=== PATIENT | male | born 1945 | race Caucasian/White ===

== ENCOUNTER → 2018-06-22 | Outpatient (CLI) | payer OTHER ==
[~2018-06-22] MED LIST: AMOX1TAB64 PO; ASPI-650 PO; CELE50CA PO; ESOM20CA PO; GADOBUTROL 10 MMOL/10 ML PFS ONE; LOSA25TA6 PO; PRED20TA PO
== END | disposition home or self-care (01) ==
LOC: CFH 08:21
PROVIDERS: ATTEND Nurse Practitioner Primary Care
DX: R25.1 Tremor, unspecified (principal); R51 Headache; R42 Dizziness and giddiness; Z87.891 Personal history of nicotine dependence
CPT/HCPCS: 70553; A9585

== ENCOUNTER 2019-08-14 12:48 | Outpatient (CLI) | payer MEDICARE ==
[~2019-08-14 12:48] MED LIST changes: -GADOBUTROL 10 MMOL/10 ML PFS ONE; +LOSA25TA25 PO; -LOSA25TA6 PO
[2019-08-14] MEDS ORDERED: vitamin D PO (13:26)
[2019-08-14] MEDS ORDERED: [UNRECOGNIZED DRUG - OTHER] PO (13:26)
[2019-08-14] MEDS ORDERED: vitamin B12 (13:26)
[2019-08-14] MEDS ORDERED: glucosamin (13:26)
[2019-08-14] MEDS ORDERED: LOSA1TAB22 PO (13:26)
[2019-08-14] MEDS ORDERED: CELE200C PO (13:26)
[2019-08-14] MEDS ORDERED: [UNRECOGNIZED DRUG - CODE] PO (13:26)
[2019-08-14] MEDS ORDERED: HYDR-3237 PO (13:26)
[2019-08-14 14:28] LABS: BASOPHILS # (AUTO) 0.02 x10^3/uL (0-0.1); BASOPHILS % (AUTO) 0 % (0-1); EOSINOPHILS # (AUTO) 0.24 x10^3/uL (0-0.4); EOSINOPHILS % (AUTO) 3 % (1-7); LYMPHOCYTES # (AUTO) 1.61 x10^3/uL (1-3.4); LYMPHOCYTES % (AUTO) 21 % (22-44); MD NO; MEAN CORPUSCULAR HEMOGLOBIN 32.1 pg (27.5-34.5); MEAN CORPUSCULAR HGB CONC 33.7 g/dL (33.2-36.2); MEAN CORPUSCULAR VOLUME 95.4 fL (81-97); MEAN PLATELET VOLUME 9.4 fL (7.4-10.4); MONOCYTES # (AUTO) 0.66 x10^3/uL (0.2-0.8); MONOCYTES % (AUTO) 9 % (2-9); NEUTROPHILS # (AUTO) 5.11 x10^3/uL (1.8-6.8); NEUTROPHILS % (AUTO) 67 % (42-75); PLATELET COUNT 383 x10^3/uL (130-400); RED BLOOD COUNT 4.76 x10^6/uL (4.38-5.82); RED CELL DISTRIBUTION WIDTH 13.7 % (9.4-14.8)
[2019-08-14 14:37] LABS: ALANINE AMINOTRANSFERASE 22 U/L (12-78); ALBUMIN 3.3 g/dL (3.4-5.0); ANION GAP 9 mmol/L (5-15); CALCIUM 8.1 mg/dL (8.5-10.1); CHLORIDE 102 mmol/L (98-107); CREATININE 0.92 mg/dL (0.7-1.3)
[2019-08-14 14:39] LABS: ALKALINE PHOSPHATASE 94 U/L (45-117); BILIRUBIN,TOTAL 0.7 mg/dL (0.2-1.0); TOTAL PROTEIN 7.1 g/dL (6.4-8.2)
[2019-08-14 14:40] LABS: INTERNATIONAL NORMALIZED RATIO 1.05 (0.93-1.1)
[2019-08-17] MEDS ORDERED: METO-99 PO (10:41)
[2019-08-17] MEDS ORDERED: RIVA20TA PO (10:41)
== END 2019-08-14 23:59 | disposition home or self-care (01) ==
LOC: STAR 12:48
PROVIDERS: ATTEND Neurological Surgery
DX: Z01.818 Encounter for other preprocedural examination (principal); M48.061 Spinal stenosis, lumbar region without neurogenic claudication; M48.02 Spinal stenosis, cervical region
CPT/HCPCS: 36415; 80053; 85025; 85610; 85730; 93005

== ENCOUNTER 2019-08-23 13:03 | Day surgery (SDC) | payer MEDICARE ==
[~2019-08-23] VITALS: Ht 180.3 cm; Wt 95.0 kg
[2019-08-23 09:27] VITALS: BP 131/96
[~2019-08-23 13:03] MED LIST changes: +ALBUTEROL SULFATE 2.5 MG/3 ML NPPB PRN; +BACITRACIN 50,000 UNIT ONE; +BUPIVACAINE 0.25% ONE; +BUPIVACAINE LIPOSOME/PF 10ML INFIL ONE; +BUPIVACAINE/PF 0.5% ONE; +CEFAZOLIN 1,000 MG ONE; +CELE200C PO; +CYAN50003 PO; +DEXAMETHASONE 4 MG/ML, 1ML ONE; +FENTANYL PF 100 MCG/2ML IV PRN; +FENTANYL PF 100 MCG/2ML ONE; +FENTANYL PF 250 MCG/5ML ONE; +GLUC-128 PO; +HYDR-3237 PO; +HYDROmorphone 1 MG/ML, 1ML VIAL IV PRN; +KETOROLAC 30 MG/1 ML IV PRN; +LABETALOL 5 MG/ML SYR. (IV ONLY) IV PRN; +LACTATED RINGERS 1,000 ML IV SCH; +LOSA1TAB22 PO; +MEPERIDINE/PF 25MG/0.5ML IVPush PRN; +METO-99 PO; +METOCLOPRAMIDE 5 MG/ML, 2ML IV PRN; +MIDAZOLAM 1 MG/ML, 2ML ONE; +OMEG-14 PO; +ONDANSETRON 2MG/ML, 2ML IVPush PRN; +ONDANSETRON 2MG/ML, 2ML ONE; +OXYcodone 5 MG/5 ML ORAL.SOL UDC PO PRN; +PROMETHAZINE 25 MG/ML, 1ML IV PRN; +PROPOFOL 10 MG/ML, 20ML ONE; +RIVA20TA PO; +SUCCINYLCHOLINE 20 MG/ML, 10ML ONE; +THROMBIN 5,000 UNIT VIAL TP ONE; +VANCOMYCIN 1,000 MG ONE; +[UNRECOGNIZED DRUG - CODE] PO; +[UNRECOGNIZED DRUG - OTHER] PO; +glucosamin; +hydrALAzine 20 MG/ML, 1ML IV PRN; +vitamin B12; +vitamin D PO
[2019-08-23] MEDS ORDERED: ONDANSETRON 2MG/ML, 2ML IVPush PRN (13:30)
[2019-08-23] MEDS ORDERED: morphine SULFATE 10 MG/ML, 1ML IVPush PRN (13:30)
[2019-08-23] MEDS ORDERED: METHOCARBAMOL 750 MG TABLET PO PRN (13:30)
[2019-08-23] MEDS ORDERED: SENNA/DOCUSATE TABLET PO PRN (13:30)
[2019-08-23] MEDS ORDERED: HYDROcodone/APAP 5/325 TABLET PO PRN (13:30)
[2019-08-23] MEDS ORDERED: DIPHENHYDRAMINE 50 MG/ML, 1ML IVPush PRN (13:30)
[2019-08-23] MEDS ORDERED: MAGNESIUM HYDROXIDE 8%, 30ML UDC PO PRN (13:30)
[2019-08-23] MEDS ORDERED: PROMETHAZINE 25 MG/ML, 1ML IM PRN (13:30)
[2019-08-23] MEDS ORDERED: PHARMACY MAY ADJ FOR RENAL FX MC PRN (13:30)
[2019-08-23] MEDS ORDERED: LABETALOL 5 MG/ML SYR. (IV ONLY) IVPush PRN (13:30)
[2019-08-23] MEDS ORDERED: HYDROcodone/APAP 10/325 MG TABLET PO PRN (13:30)
[2019-08-23 14:24] VITALS: BP 110/67
[2019-08-23] MEDS: D5%-0.9% NACL+KCL 20MEQ 1,000 ML IV SCH (15:07)
[2019-08-23] MEDS: METOPROLOL TARTRATE 100 MG TAB PO SCH (20:23)
[2019-08-23] MEDS: CEFAZOLIN PMX 1GM/50ML 50 ML IVPB SCH (20:24)
[2019-08-23] MEDS: OXYcodone/APAP 5/325MG TABLET PO PRN ×2 (20:24→21:01)
[2019-08-23] MEDS: SODIUM CHLORIDE FLUSH 10ML SYR IVF SCH (20:24)
[2019-08-23 21:04] VITALS: BP 120/84
[2019-08-24 00:56] VITALS: BP 116/78
[2019-08-24] MEDS: OXYcodone/APAP 5/325MG TABLET PO PRN ×2 (01:05→05:04)
[2019-08-24] MEDS: CEFAZOLIN PMX 1GM/50ML 50 ML IVPB SCH (04:16)
[2019-08-24 04:19] VITALS: BP 120/81
[2019-08-24 06:42] VITALS: BP 131/89
[2019-08-24] MEDS: SODIUM CHLORIDE FLUSH 10ML SYR IVF SCH (08:49)
[2019-08-24] MEDS: METOPROLOL TARTRATE 100 MG TAB PO SCH (08:49)
[2019-08-24] MEDS ORDERED: CYANOCOBALAMIN 1,000 MCG TABLET PO SCH (09:00)
[2019-08-24] MEDS ORDERED: MSM PO SCH (09:00)
[2019-08-24] MEDS ORDERED: [UNRECOGNIZED DRUG - OTHER] PO SCH (09:00)
[2019-08-24] MEDS ORDERED: PANTOPRAZOLE 40MG TABLET PO SCH (09:00)
[2019-08-24] MEDS ORDERED: GLUCOSAM PO SCH (09:00)
[2019-08-24] MEDS ORDERED: CHONDROIT PO SCH (09:00)
[2019-08-24] MEDS ORDERED: VIT D3 PO SCH (09:00)
[2019-08-24] MEDS: D5%-0.9% NACL+KCL 20MEQ 1,000 ML IV SCH (09:30)
[2019-08-24] MEDS ORDERED: METH750T87 PO (10:33)
[2019-08-24] MEDS ORDERED: CEPH-368 PO (10:34)
[2019-09-19] MEDS ORDERED: DIGO250T3 PO (12:36)
== END 2019-08-24 12:21 | disposition home or self-care (01) ==
LOC: ORIP 13:03 → OUT 13:03 → UNDOADMIN 13:03 → 4NE 14:16 → ORIP 14:16 → 4NE 08-24 12:11 → DCLOUNGE 08-24 12:11 → OUT 08-24 12:21 → UNDODISIN 08-24 12:21
PROVIDERS: ATTEND Neurological Surgery
DX: M48.062 Spinal stenosis, lumbar region with neurogenic claudication (principal); I48.91 Unspecified atrial fibrillation; G89.29 Other chronic pain; M54.5 Low back pain; M35.3 Polymyalgia rheumatica; M19.90 Unspecified osteoarthritis, unspecified site; Z79.01 Long term (current) use of anticoagulants; Z79.82 Long term (current) use of aspirin; Z79.891 Long term (current) use of opiate analgesic; Z79.899 Other long term (current) drug therapy; Z87.891 Personal history of nicotine dependence; Z98.1 Arthrodesis status; Z82.61 Family history of arthritis
CPT/HCPCS: 63042; 72100; J0330; J0690; J1100; J2250; J2405; J2704; J3010; J3370; J3480; J3490; J7120; 76000; G0378

== ENCOUNTER 2019-09-04 19:31 | Inpatient (IN) | payer MEDICARE ==
[~2019-09-04] VITALS: Ht 177.8 cm; Wt 93.5 kg
[~2019-09-04 19:31] MED LIST changes: -ALBUTEROL SULFATE 2.5 MG/3 ML NPPB PRN; -BACITRACIN 50,000 UNIT ONE; -BUPIVACAINE 0.25% ONE; -BUPIVACAINE LIPOSOME/PF 10ML INFIL ONE; -BUPIVACAINE/PF 0.5% ONE; -CEFAZOLIN 1,000 MG ONE; +CEPH-368 PO; -DEXAMETHASONE 4 MG/ML, 1ML ONE; -FENTANYL PF 100 MCG/2ML IV PRN; -FENTANYL PF 100 MCG/2ML ONE; -FENTANYL PF 250 MCG/5ML ONE; -HYDROmorphone 1 MG/ML, 1ML VIAL IV PRN; -KETOROLAC 30 MG/1 ML IV PRN; -LABETALOL 5 MG/ML SYR. (IV ONLY) IV PRN; -LACTATED RINGERS 1,000 ML IV SCH; -MEPERIDINE/PF 25MG/0.5ML IVPush PRN; +METH750T87 PO; -METOCLOPRAMIDE 5 MG/ML, 2ML IV PRN; -MIDAZOLAM 1 MG/ML, 2ML ONE; -ONDANSETRON 2MG/ML, 2ML IVPush PRN; -ONDANSETRON 2MG/ML, 2ML ONE; -OXYcodone 5 MG/5 ML ORAL.SOL UDC PO PRN; -PROMETHAZINE 25 MG/ML, 1ML IV PRN; -PROPOFOL 10 MG/ML, 20ML ONE; -SUCCINYLCHOLINE 20 MG/ML, 10ML ONE; -THROMBIN 5,000 UNIT VIAL TP ONE; -VANCOMYCIN 1,000 MG ONE; -hydrALAzine 20 MG/ML, 1ML IV PRN
[2019-09-04] MEDS ORDERED: METOPROLOL 1 MG/ML, 5ML ONE (19:48)
[2019-09-04] MEDS ORDERED: SODIUM CHLORIDE 0.9% 1,000ML IVBOLUS ONE (20:00)
[2019-09-04] MEDS ORDERED: ACETAMINOPHEN 500 MG TABLET PO ONE (20:00)
[2019-09-04] MEDS ORDERED: METOPROLOL 1 MG/ML, 5ML IVPush ONE ×2 (20:00→23:30)
[2019-09-04] MEDS ORDERED: SODIUM CHLORIDE FLUSH 10ML SYR IVF ONE (20:00)
--- NOTE | 2019-09-04 20:10 | NUR ---
PT BIB EMS FOR INCREASED WEAKNESS IN BACK. S/P LAMINECTOMY ON 08/23/19. PT WAS UNABLE TO GET UP TO WALK TODAY. PT ALSO NEW DIAGNOSED AFIB ON METOPROLOL AND XARALTO. MISSED CARDIOLOGY APPOINTMENT TODAY. PT HAS FULL SENSATION IN ALL EXTREMITIES. PULSES PEDAL 2+, WEAKNESS IN BLL. PT STATEST "SOMETIMES I AM UNABLE TO EMPTY WHEN VOIDING". CARDIAC MONIOTR APPLIED. AFIB 150S. EKG DONE. MEDICATED PER ORDERS. PT DENIES CHEST PAIN. SLIGHT SOB. AT BEDSIDE.
[2019-09-04 20:16] LABS: RAPID INFLUENZA A Negative (Negative); RAPID INFLUENZA B Negative (Negative)
[2019-09-04 20:29] LABS: INTERNATIONAL NORMALIZED RATIO 1.5 (0.93-1.1); PROTHROMBIN TIME 15.5 Seconds (9.6-11.5)
[2019-09-04 20:30] LABS: MEAN CORPUSCULAR HEMOGLOBIN 30.4 pg (27.5-34.5); MEAN CORPUSCULAR HGB CONC 32.6 g/dL (33.2-36.2); MEAN CORPUSCULAR VOLUME 93.4 fL (81-97); MEAN PLATELET VOLUME 9.8 fL (7.4-10.4); PLATELET COUNT 316 x10^3/uL (130-400); RED BLOOD COUNT 4.32 x10^6/uL (4.38-5.82); RED CELL DISTRIBUTION WIDTH 13.6 % (9.4-14.8)
[2019-09-04] MEDS ORDERED: VANCOMYCIN PER PHARMACY MC PRN (20:30)
[2019-09-04] MEDS ORDERED: VANCOMYCIN 1,700 MG in SODIUM CHLORIDE 0.9% 250 ML IV ONE (20:30)
[2019-09-04] MEDS ORDERED: PIPERACILLIN/TAZO/PMX 4.5GM 100 ML IV ONE (20:30)
[2019-09-04 20:31] LABS: ALANINE AMINOTRANSFERASE 14 U/L (12-78); ALBUMIN 2.8 g/dL (3.4-5.0); ANION GAP 7 mmol/L (5-15); CALCIUM 8.4 mg/dL (8.5-10.1); CHLORIDE 112 mmol/L (98-107); CREATININE 0.76 mg/dL (0.7-1.3)
[2019-09-04 20:33] LABS: ALKALINE PHOSPHATASE 84 U/L (45-117); BILIRUBIN,TOTAL 1.2 mg/dL (0.2-1.0); TOTAL PROTEIN 6.3 g/dL (6.4-8.2)
[2019-09-04] MEDS ORDERED: ACETAMINOPHEN 500 MG TABLET ONE (20:41)
[2019-09-04] MEDS ORDERED: PIPERACILLIN/TAZO/PMX 3.375GM 0 ML ONE (20:41)
[2019-09-04 20:44] LABS: BASOPHILS # (AUTO) 0.03 x10^3/uL (0-0.1); BASOPHILS % (AUTO) 0 % (0-1); EOSINOPHILS # (AUTO) 0.01 x10^3/uL (0-0.4); EOSINOPHILS % (AUTO) 0 % (1-7); LYMPHOCYTES # (AUTO) 0.76 x10^3/uL (1-3.4); LYMPHOCYTES % (AUTO) 6 % (22-44); MD SCAN; MONOCYTES # (AUTO) 0.81 x10^3/uL (0.2-0.8); MONOCYTES % (AUTO) 7 % (2-9); NEUTROPHILS # (AUTO) 10.37 x10^3/uL (1.8-6.8); NEUTROPHILS % (AUTO) 87 % (42-75)
[2019-09-04] MEDS ORDERED: SODIUM CHLORIDE 0.9% 1,000 ML IV ONE (21:00)
--- NOTE | 2019-09-04 21:52 | NUR ---
REPORT CALLED TO ZAY CHRISTIAN
[2019-09-04] MEDS ORDERED: ONDANSETRON 2MG/ML, 2ML IVPush PRN (22:00)
[2019-09-04] MEDS ORDERED: hydrALAzine 20 MG/ML, 1ML IVPush PRN (22:00)
[2019-09-04] MEDS ORDERED: POLYETHYLENE GLYCOL 17 GM PACKET PO PRN (22:00)
[2019-09-04] MEDS ORDERED: DOCUSATE 100 MG CAPSULE PO PRN (22:00)
[2019-09-04] MEDS ORDERED: BISACODYL 10 MG SUPP PR PRN (22:00)
[2019-09-04] MEDS ORDERED: morphine SULFATE 10 MG/ML, 1ML IVPush PRN (22:00)
[2019-09-04] MEDS ORDERED: PROMETHAZINE 25 MG/ML, 1ML IM PRN (22:00)
[2019-09-04] MEDS ORDERED: ONDANSETRON ODT 4 MG PO PRN (22:00)
[2019-09-04 22:35] VITALS: BP 138/88
[2019-09-04 22:41] LABS: FREE T4 (FREE THYROXINE) 1.3 ng/dL (0.76-1.46)
[2019-09-04 22:45] LABS: HEMOGLOBIN A1C 5.5 % (4.2-6.3)
[2019-09-04] MEDS ORDERED: MAGNESIUM SULFATE PMX 2GM/50ML 50 ML IV ONE (23:00)
[2019-09-04] MEDS ORDERED: POTASSIUM CHLORIDE 40 MEQ in SODIUM CHLORIDE 0.9% 500 ML IV ONE (23:00)
[2019-09-04] MEDS: METOPROLOL TARTRATE 100 MG TABLET PO SCH (23:36)
[2019-09-04] MEDS: CALCIUM CARBONATE 500 MG TAB.CHEW PO PRN (23:42)
[2019-09-05] MEDS: SODIUM CHLORIDE 0.9% 1,000 ML IV SCH ×3 (00:10→21:43)
[2019-09-05 00:59] VITALS: BP 146/95
[2019-09-05] MEDS: PIPERACILLIN/TAZO/PMX 3.375GM 50 ML IV SCH ×4 (04:13→21:06)
[2019-09-05 04:51] LABS: BASOPHILS # (AUTO) 0.04 x10^3/uL (0-0.1); BASOPHILS % (AUTO) 0 % (0-1); EOSINOPHILS # (AUTO) 0.23 x10^3/uL (0-0.4); EOSINOPHILS % (AUTO) 2 % (1-7); LYMPHOCYTES # (AUTO) 1.12 x10^3/uL (1-3.4); LYMPHOCYTES % (AUTO) 11 % (22-44); MD NO; MEAN CORPUSCULAR HEMOGLOBIN 31.5 pg (27.5-34.5); MEAN CORPUSCULAR HGB CONC 32.9 g/dL (33.2-36.2); MEAN CORPUSCULAR VOLUME 95.9 fL (81-97); MEAN PLATELET VOLUME 9.8 fL (7.4-10.4); MONOCYTES # (AUTO) 0.45 x10^3/uL (0.2-0.8); MONOCYTES % (AUTO) 5 % (2-9); NEUTROPHILS # (AUTO) 8.25 x10^3/uL (1.8-6.8); NEUTROPHILS % (AUTO) 82 % (42-75); PLATELET COUNT 286 x10^3/uL (130-400); RED BLOOD COUNT 4.05 x10^6/uL (4.38-5.82); RED CELL DISTRIBUTION WIDTH 13.9 % (9.4-14.8)
[2019-09-05 05:06] LABS: ALBUMIN 2.5 g/dL (3.4-5.0); ANION GAP 9 mmol/L (5-15); CALCIUM 8.1 mg/dL (8.5-10.1); CHLORIDE 114 mmol/L (98-107)
[2019-09-05 05:12] LABS: ALANINE AMINOTRANSFERASE 11 U/L (12-78); ALKALINE PHOSPHATASE 75 U/L (45-117); CHOL/HDL RATIO 3.9; CHOLESTEROL, TOTAL 138 mg/dL (140-239); CREATININE 0.65 mg/dL (0.7-1.3); HDL CHOL % 25 % (26-37); HDL CHOLESTEROL (DIRECT) 35 mg/dL (40-60); LDL CHOLESTEROL,CALCULATED 87 mg/dL (54-169); LDL/HDL RATIO 2.5 (0.5-3.0); TRIGLYCERIDES 81 mg/dL (50-200); VLDL CHOLESTEROL 16 mg/dL (0-25)
[2019-09-05] MEDS: PANTOPROZOLE 40MG TABLET PO SCH (06:02)
[2019-09-05 06:49] LABS: CLOSTRIDIUM DIFFICILE ANTIGEN NEGATIVE; CLOSTRIDIUM DIFFICILE TOXIN NEGATIVE (Negative)
[2019-09-05 07:04] VITALS: BP 152/99
[2019-09-05] MEDS: POTASSIUM CHLORIDE 20 MEQ TAB.ER.PRT PO SCH ×2 (08:52→16:35)
[2019-09-05] MEDS: METOPROLOL TARTRATE 100 MG TABLET PO SCH ×2 (08:52→21:06)
[2019-09-05] MEDS: OXYcodone IR 5MG TABLET PO PRN ×2 (10:34→15:19)
[2019-09-05] MEDS ORDERED: VANCOMYCIN PER PHARMACY MC PRN (11:30)
[2019-09-05] MEDS: CALCIUM CARBONATE 500 MG TAB.CHEW PO PRN ×2 (12:18→16:35)
[2019-09-05] MEDS: LACTOBACILLUS CHEW TABLET PO SCH ×3 (12:18→21:06)
[2019-09-05] MEDS ORDERED: PHARMACOKINETIC MONITORING MC PRN (12:30)
[2019-09-05] MEDS: LOPERAMIDE 2 MG CAPSULE PO PRN (12:47)
[2019-09-05] MEDS ORDERED: DILTIAZEM 125 MG in SODIUM CHLORIDE 0.9% 100 ML IV SCH (14:30)
[2019-09-05 15:02] VITALS: BP 129/89
[2019-09-05] MEDS: RIVAROXABAN 20 MG TABLET PO SCH (16:35)
[2019-09-05 17:14] LABS: MICROSCOPIC AUTO
[2019-09-05 17:23] LABS: CULTURE INDICATED? NO
[2019-09-05 20:59] VITALS: BP 129/87
[2019-09-05] MEDS: VANCOMYCIN 1,700 MG in SODIUM CHLORIDE 0.9% 250 ML IV SCH (21:42)
[2019-09-06 00:43] VITALS: BP 103/67
[2019-09-06] MEDS: PIPERACILLIN/TAZO/PMX 3.375GM 50 ML IV SCH ×4 (03:16→20:05)
[2019-09-06 04:41] LABS: BASOPHILS # (AUTO) 0.11 x10^3/uL (0-0.1); BASOPHILS % (AUTO) 1 % (0-1); EOSINOPHILS % (AUTO) 4 % (1-7); LYMPHOCYTES # (AUTO) 1.02 x10^3/uL (1-3.4); LYMPHOCYTES % (AUTO) 9 % (22-44); MD NO; MEAN CORPUSCULAR HEMOGLOBIN 31.1 pg (27.5-34.5); MEAN CORPUSCULAR HGB CONC 32.3 g/dL (33.2-36.2); MEAN CORPUSCULAR VOLUME 96.3 fL (81-97); MEAN PLATELET VOLUME 9.7 fL (7.4-10.4); MONOCYTES # (AUTO) 0.83 x10^3/uL (0.2-0.8); MONOCYTES % (AUTO) 7 % (2-9); NEUTROPHILS % (AUTO) 79 % (42-75); PLATELET COUNT 301 x10^3/uL (130-400); RED BLOOD COUNT 3.84 x10^6/uL (4.38-5.82); RED CELL DISTRIBUTION WIDTH 13.9 % (9.4-14.8)
[2019-09-06 04:46] LABS: ANION GAP 9 mmol/L (5-15); CALCIUM 7.7 mg/dL (8.5-10.1); CHLORIDE 111 mmol/L (98-107); CREATININE 0.66 mg/dL (0.7-1.3)
[2019-09-06] MEDS: PANTOPROZOLE 40MG TABLET PO SCH (06:07)
[2019-09-06 08:32] VITALS: BP 134/87
[2019-09-06] MEDS: LACTOBACILLUS CHEW TABLET PO SCH ×3 (09:37→20:05)
[2019-09-06] MEDS: OXYcodone IR 5MG TABLET PO PRN ×3 (09:37→21:07)
[2019-09-06] MEDS: POTASSIUM CHLORIDE 20 MEQ TAB.ER.PRT PO SCH ×2 (09:37→16:18)
[2019-09-06] MEDS: METOPROLOL TARTRATE 100 MG TABLET PO SCH ×2 (09:38→20:05)
[2019-09-06 14:17] VITALS: BP 108/68
[2019-09-06] MEDS: SODIUM CHLORIDE 0.9% 1,000 ML IV SCH (14:49)
[2019-09-06] MEDS: PANTOPRAZOLE 20MG TABLET PO SCH (14:49)
[2019-09-06] MEDS: DILTIAZEM 125 MG in SODIUM CHLORIDE 0.9% 100 ML IV SCH (15:07)
[2019-09-06] MEDS: RIVAROXABAN 20 MG TABLET PO SCH (16:18)
[2019-09-06] MEDS ORDERED: DILTIAZEM 125 MG in SODIUM CHLORIDE 0.9% 100 ML IV SCH (17:30)
[2019-09-06 18:52] VITALS: BP 139/92
[2019-09-06] MEDS: VANCOMYCIN 1,700 MG in SODIUM CHLORIDE 0.9% 250 ML IV SCH (21:07)
[2019-09-07] MEDS: DILTIAZEM 125 MG in SODIUM CHLORIDE 0.9% 100 ML IV SCH (00:08)
[2019-09-07 00:42] VITALS: BP 120/79
[2019-09-07] MEDS: PIPERACILLIN/TAZO/PMX 3.375GM 50 ML IV SCH ×4 (03:07→21:28)
[2019-09-07] MEDS: PANTOPRAZOLE 20MG TABLET PO SCH ×2 (05:52→17:00)
[2019-09-07] MEDS: OXYcodone IR 5MG TABLET PO PRN ×3 (05:52→21:28)
[2019-09-07 08:00] LABS: BASOPHILS # (AUTO) 0.04 x10^3/uL (0-0.1); BASOPHILS % (AUTO) 0 % (0-1); EOSINOPHILS % (AUTO) 5 % (1-7); LYMPHOCYTES # (AUTO) 0.74 x10^3/uL (1-3.4); LYMPHOCYTES % (AUTO) 9 % (22-44); MD NO; MEAN CORPUSCULAR HEMOGLOBIN 30.6 pg (27.5-34.5); MEAN CORPUSCULAR HGB CONC 32.4 g/dL (33.2-36.2); MEAN CORPUSCULAR VOLUME 94.4 fL (81-97); MONOCYTES # (AUTO) 0.87 x10^3/uL (0.2-0.8); MONOCYTES % (AUTO) 10 % (2-9); NEUTROPHILS # (AUTO) 6.31 x10^3/uL (1.8-6.8); NEUTROPHILS % (AUTO) 75 % (42-75); PLATELET COUNT 283 x10^3/uL (130-400); RED CELL DISTRIBUTION WIDTH 13.6 % (9.4-14.8)
[2019-09-07 08:04] VITALS: BP 138/101
[2019-09-07 08:08] LABS: ALANINE AMINOTRANSFERASE 19 U/L (12-78); ALBUMIN 2.4 g/dL (3.4-5.0); ANION GAP 8 mmol/L (5-15); CALCIUM 7.6 mg/dL (8.5-10.1); CHLORIDE 114 mmol/L (98-107); CREATININE 0.54 mg/dL (0.7-1.3)
[2019-09-07 08:10] LABS: ALKALINE PHOSPHATASE 68 U/L (45-117); BILIRUBIN,TOTAL 0.8 mg/dL (0.2-1.0); TOTAL PROTEIN 5.8 g/dL (6.4-8.2)
[2019-09-07] MEDS: LACTOBACILLUS CHEW TABLET PO SCH ×3 (08:38→19:52)
[2019-09-07] MEDS: POTASSIUM CHLORIDE 20 MEQ TAB.ER.PRT PO SCH ×2 (08:38→17:00)
[2019-09-07] MEDS: MULTIVITS,STRESS FORMULA 1 TABLET PO SCH (08:38)
[2019-09-07] MEDS: METOPROLOL TARTRATE 100 MG TABLET PO SCH (08:39)
[2019-09-07] MEDS: DILTIAZEM 120 MG CAP.ER.24H PO SCH (08:39)
[2019-09-07] MEDS: CALCIUM CARBONATE 500 MG TAB.CHEW PO SCH ×2 (08:39→19:52)
[2019-09-07] MEDS: SODIUM CHLORIDE 0.9% 1,000 ML IV SCH ×2 (08:42→19:35)
[2019-09-07] MEDS: ASCORBIC ACID 500 MG TABLET PO SCH ×2 (09:08→15:14)
[2019-09-07 13:14] VITALS: BP 130/85
[2019-09-07] MEDS: CHOLECALCIFEROL 400 UNITS TABLET PO SCH (15:13)
[2019-09-07 16:30] VITALS: BP 150/94
[2019-09-07] MEDS ORDERED: CHOLECALCIFEROL 400 UNITS/ML ORAL SOL PO SCH (16:30)
[2019-09-07] MEDS: RIVAROXABAN 20 MG TABLET PO SCH (17:00)
[2019-09-07] MEDS: DILTIAZEM 5 MG/ML, 5ML IVPush PRN (17:40)
[2019-09-07 18:48] VITALS: BP 125/84
[2019-09-07] MEDS ORDERED: DILTIAZEM 5 MG/ML, 5ML IVPush ONE (19:00)
[2019-09-07 19:13] VITALS: BP 161/99
[2019-09-07] MEDS: VANCOMYCIN 1,700 MG in SODIUM CHLORIDE 0.9% 250 ML IV SCH (19:37)
[2019-09-07] MEDS: METOPROLOL TARTRATE 50 MG TABLET PO SCH (19:52)
[2019-09-07] MEDS: LOPERAMIDE 2 MG CAPSULE PO PRN (21:28)
[2019-09-08 00:49] VITALS: BP 125/88
[2019-09-08] MEDS: PIPERACILLIN/TAZO/PMX 3.375GM 50 ML IV SCH ×4 (02:58→20:40)
[2019-09-08 04:31] LABS: BASOPHILS # (AUTO) 0.02 x10^3/uL (0-0.1); BASOPHILS % (AUTO) 0 % (0-1); EOSINOPHILS # (AUTO) 0.43 x10^3/uL (0-0.4); EOSINOPHILS % (AUTO) 6 % (1-7); LYMPHOCYTES # (AUTO) 0.97 x10^3/uL (1-3.4); LYMPHOCYTES % (AUTO) 13 % (22-44); MD NO; MEAN CORPUSCULAR HEMOGLOBIN 31.5 pg (27.5-34.5); MEAN CORPUSCULAR VOLUME 95.4 fL (81-97); MEAN PLATELET VOLUME 9.5 fL (7.4-10.4); MONOCYTES # (AUTO) 0.93 x10^3/uL (0.2-0.8); MONOCYTES % (AUTO) 13 % (2-9); NEUTROPHILS # (AUTO) 5.07 x10^3/uL (1.8-6.8); NEUTROPHILS % (AUTO) 68 % (42-75); PLATELET COUNT 295 x10^3/uL (130-400); RED BLOOD COUNT 3.42 x10^6/uL (4.38-5.82); RED CELL DISTRIBUTION WIDTH 13.5 % (9.4-14.8)
[2019-09-08 04:39] LABS: ALBUMIN 2.1 g/dL (3.4-5.0); ANION GAP 2 mmol/L (5-15); CALCIUM 7.5 mg/dL (8.5-10.1); CHLORIDE 115 mmol/L (98-107); CREATININE 0.57 mg/dL (0.7-1.3)
[2019-09-08] MEDS: SODIUM CHLORIDE 0.9% 1,000 ML IV SCH (05:27)
[2019-09-08 06:55] VITALS: BP 149/93
[2019-09-08] MEDS: PANTOPRAZOLE 20MG TABLET PO SCH ×2 (08:00→15:11)
[2019-09-08] MEDS: ASCORBIC ACID 500 MG TABLET PO SCH ×2 (08:20→17:00)
[2019-09-08] MEDS: CALCIUM CARBONATE 500 MG TAB.CHEW PO SCH ×2 (08:20→20:39)
[2019-09-08] MEDS: POTASSIUM CHLORIDE 20 MEQ TAB.ER.PRT PO SCH ×2 (08:20→16:59)
[2019-09-08] MEDS: METOPROLOL TARTRATE 50 MG TABLET PO SCH ×2 (08:21→19:05)
[2019-09-08] MEDS: DILTIAZEM 120 MG CAP.ER.24H PO SCH (08:21)
[2019-09-08] MEDS: MULTIVITS,STRESS FORMULA 1 TABLET PO SCH (08:21)
[2019-09-08] MEDS: LACTOBACILLUS CHEW TABLET PO SCH ×3 (08:21→20:39)
[2019-09-08] MEDS: DILTIAZEM 5 MG/ML, 5ML IVPush PRN ×3 (08:30→17:07)
[2019-09-08] MEDS: LOPERAMIDE 2 MG CAPSULE PO PRN (10:45)
[2019-09-08 12:26] VITALS: BP 138/98
[2019-09-08] MEDS: OXYcodone IR 5MG TABLET PO PRN ×2 (14:25→15:23)
[2019-09-08] MEDS: CHOLECALCIFEROL 400 UNITS TABLET PO SCH (17:00)
[2019-09-08] MEDS: RIVAROXABAN 20 MG TABLET PO SCH (17:00)
[2019-09-08 17:04] VITALS: BP 156/112
[2019-09-08 18:22] VITALS: BP 153/92
[2019-09-08] MEDS: DILTIAZEM 90 MG CAP.ER.12H PO SCH (19:05)
[2019-09-08 19:40] VITALS: BP 147/92
[2019-09-08] MEDS: MAGNESIUM OXIDE 400 MG TABLET PO SCH (20:39)
[2019-09-09 01:34] VITALS: BP 143/93
[2019-09-09] MEDS: PIPERACILLIN/TAZO/PMX 3.375GM 50 ML IV SCH ×4 (03:16→21:09)
[2019-09-09 05:32] LABS: MEAN CORPUSCULAR HEMOGLOBIN 31.1 pg (27.5-34.5); MEAN CORPUSCULAR HGB CONC 32.5 g/dL (33.2-36.2); MEAN CORPUSCULAR VOLUME 95.6 fL (81-97); MEAN PLATELET VOLUME 9.9 fL (7.4-10.4); PLATELET COUNT 311 x10^3/uL (130-400); RED BLOOD COUNT 3.67 x10^6/uL (4.38-5.82)
[2019-09-09 05:40] LABS: ALBUMIN 2.2 g/dL (3.4-5.0); ANION GAP 7 mmol/L (5-15); CALCIUM 8.2 mg/dL (8.5-10.1); CHLORIDE 113 mmol/L (98-107)
[2019-09-09 05:58] LABS: BASOPHILS # (AUTO) 0.04 x10^3/uL (0-0.1); BASOPHILS % (AUTO) 1 % (0-1); EOSINOPHILS # (AUTO) 0.33 x10^3/uL (0-0.4); EOSINOPHILS % (AUTO) 4 % (1-7); LYMPHOCYTES # (AUTO) 0.83 x10^3/uL (1-3.4); LYMPHOCYTES % (AUTO) 11 % (22-44); MD SCAN; MONOCYTES # (AUTO) 1.03 x10^3/uL (0.2-0.8); MONOCYTES % (AUTO) 13 % (2-9); NEUTROPHILS # (AUTO) 5.66 x10^3/uL (1.8-6.8); NEUTROPHILS % (AUTO) 72 % (42-75)
[2019-09-09] MEDS: PANTOPRAZOLE 20MG TABLET PO SCH ×2 (06:05→17:49)
[2019-09-09] MEDS ORDERED: MAGNESIUM SULFATE PMX 2GM/50ML 50 ML IV ONE (06:30)
[2019-09-09 06:40] VITALS: BP 149/94
[2019-09-09] MEDS: CALCIUM CARBONATE 500 MG TAB.CHEW PO SCH ×2 (09:00→21:08)
[2019-09-09] MEDS: LACTOBACILLUS CHEW TABLET PO SCH ×3 (09:34→21:08)
[2019-09-09] MEDS: MULTIVITS,STRESS FORMULA 1 TABLET PO SCH (09:34)
[2019-09-09] MEDS: DILTIAZEM 90 MG CAP.ER.12H PO SCH ×2 (09:34→21:08)
[2019-09-09] MEDS: ASCORBIC ACID 500 MG TABLET PO SCH ×2 (09:35→17:49)
[2019-09-09] MEDS: MAGNESIUM OXIDE 400 MG TABLET PO SCH ×2 (09:35→21:08)
[2019-09-09] MEDS: METOPROLOL TARTRATE 50 MG TABLET PO SCH ×2 (09:35→21:08)
[2019-09-09] MEDS: OXYcodone IR 5MG TABLET PO PRN ×2 (11:18→17:50)
[2019-09-09 12:26] VITALS: BP 138/99
[2019-09-09] MEDS: CHOLECALCIFEROL 400 UNITS TABLET PO SCH (17:49)
[2019-09-09] MEDS: RIVAROXABAN 20 MG TABLET PO SCH (17:50)
[2019-09-09 18:15] VITALS: BP 162/93
[2019-09-09 18:36] VITALS: BP 133/77
[2019-09-09 23:17] VITALS: BP 125/85
[2019-09-10] MEDS: PIPERACILLIN/TAZO/PMX 3.375GM 50 ML IV SCH ×4 (02:58→20:36)
[2019-09-10 05:11] LABS: BASOPHILS # (AUTO) 0.03 x10^3/uL (0-0.1); BASOPHILS % (AUTO) 0 % (0-1); EOSINOPHILS # (AUTO) 0.45 x10^3/uL (0-0.4); EOSINOPHILS % (AUTO) 6 % (1-7); LYMPHOCYTES # (AUTO) 0.99 x10^3/uL (1-3.4); LYMPHOCYTES % (AUTO) 13 % (22-44); MD NO; MEAN CORPUSCULAR HEMOGLOBIN 30.8 pg (27.5-34.5); MEAN CORPUSCULAR HGB CONC 32.1 g/dL (33.2-36.2); MEAN CORPUSCULAR VOLUME 95.9 fL (81-97); MEAN PLATELET VOLUME 9.4 fL (7.4-10.4); MONOCYTES # (AUTO) 1.05 x10^3/uL (0.2-0.8); MONOCYTES % (AUTO) 13 % (2-9); NEUTROPHILS # (AUTO) 5.39 x10^3/uL (1.8-6.8); NEUTROPHILS % (AUTO) 68 % (42-75); PLATELET COUNT 353 x10^3/uL (130-400); RED BLOOD COUNT 3.63 x10^6/uL (4.38-5.82); RED CELL DISTRIBUTION WIDTH 13.4 % (9.4-14.8)
[2019-09-10 05:23] LABS: ALBUMIN 2.2 g/dL (3.4-5.0); ANION GAP 8 mmol/L (5-15); CHLORIDE 111 mmol/L (98-107); CREATININE 0.58 mg/dL (0.7-1.3)
[2019-09-10] MEDS: PANTOPRAZOLE 20MG TABLET PO SCH ×2 (05:59→15:31)
[2019-09-10 07:17] VITALS: BP 134/85
[2019-09-10] MEDS ORDERED: CALCIUM GLUCONATE 4.6 MEQ in SODIUM CHLORIDE 0.9% 50 ML IV ONE (07:30)
[2019-09-10] MEDS ORDERED: MAGNESIUM SULFATE PMX 2GM/50ML 50 ML IV ONE (07:30)
[2019-09-10] MEDS ORDERED: POTASSIUM CHLORIDE 20 MEQ in SODIUM CHLORIDE 0.9% 250 ML IV ONE (07:30)
[2019-09-10] MEDS: DILTIAZEM 90 MG CAP.ER.12H PO SCH ×2 (09:07→20:37)
[2019-09-10] MEDS: METOPROLOL TARTRATE 50 MG TABLET PO SCH ×2 (09:07→20:37)
[2019-09-10] MEDS: ASCORBIC ACID 500 MG TABLET PO SCH ×2 (09:07→17:26)
[2019-09-10] MEDS: MAGNESIUM OXIDE 400 MG TABLET PO SCH ×2 (09:07→20:36)
[2019-09-10] MEDS: MULTIVITS,STRESS FORMULA 1 TABLET PO SCH (09:08)
[2019-09-10] MEDS: LACTOBACILLUS CHEW TABLET PO SCH ×3 (09:08→20:37)
[2019-09-10] MEDS: LOPERAMIDE 2 MG CAPSULE PO PRN (09:09)
[2019-09-10] MEDS: CALCIUM CARBONATE 500 MG TAB.CHEW PO SCH ×2 (11:18→20:37)
[2019-09-10] MEDS: OXYcodone IR 5MG TABLET PO PRN (11:33)
[2019-09-10 13:04] VITALS: BP 137/82
[2019-09-10] MEDS: CHOLECALCIFEROL 400 UNITS TABLET PO SCH (15:31)
[2019-09-10] MEDS: RIVAROXABAN 20 MG TABLET PO SCH (17:00)
[2019-09-10 18:51] VITALS: BP 136/94
[2019-09-11 00:11] VITALS: BP 126/83
[2019-09-11] MEDS: PIPERACILLIN/TAZO/PMX 3.375GM 50 ML IV SCH ×4 (02:47→19:35)
[2019-09-11 04:57] LABS: BASOPHILS # (AUTO) 0.04 x10^3/uL (0-0.1); BASOPHILS % (AUTO) 1 % (0-1); EOSINOPHILS # (AUTO) 0.36 x10^3/uL (0-0.4); EOSINOPHILS % (AUTO) 5 % (1-7); LYMPHOCYTES # (AUTO) 1.03 x10^3/uL (1-3.4); LYMPHOCYTES % (AUTO) 14 % (22-44); MD NO; MEAN CORPUSCULAR HEMOGLOBIN 30.5 pg (27.5-34.5); MEAN CORPUSCULAR HGB CONC 32.6 g/dL (33.2-36.2); MEAN CORPUSCULAR VOLUME 93.6 fL (81-97); MEAN PLATELET VOLUME 8.9 fL (7.4-10.4); MONOCYTES # (AUTO) 0.92 x10^3/uL (0.2-0.8); MONOCYTES % (AUTO) 12 % (2-9); NEUTROPHILS # (AUTO) 5.26 x10^3/uL (1.8-6.8); NEUTROPHILS % (AUTO) 69 % (42-75); PLATELET COUNT 369 x10^3/uL (130-400); RED BLOOD COUNT 3.67 x10^6/uL (4.38-5.82); RED CELL DISTRIBUTION WIDTH 13.9 % (9.4-14.8)
[2019-09-11 05:07] LABS: ALBUMIN 2.3 g/dL (3.4-5.0); ANION GAP 6 mmol/L (5-15); CHLORIDE 112 mmol/L (98-107)
[2019-09-11] MEDS: PANTOPRAZOLE 20MG TABLET PO SCH ×2 (06:21→16:39)
[2019-09-11 07:06] VITALS: BP 139/103
[2019-09-11] MEDS: DILTIAZEM 90 MG CAP.ER.12H PO SCH (08:24)
[2019-09-11] MEDS: MAGNESIUM OXIDE 400 MG TABLET PO SCH (08:24)
[2019-09-11] MEDS: LOPERAMIDE 2 MG CAPSULE PO PRN (08:25)
[2019-09-11] MEDS: LACTOBACILLUS CHEW TABLET PO SCH ×3 (08:25→19:36)
[2019-09-11] MEDS: MULTIVITS,STRESS FORMULA 1 TABLET PO SCH (08:25)
[2019-09-11] MEDS: ASCORBIC ACID 500 MG TABLET PO SCH ×2 (08:26→16:39)
[2019-09-11] MEDS: METOPROLOL TARTRATE 50 MG TABLET PO SCH (08:26)
[2019-09-11] MEDS: OXYcodone IR 5MG TABLET PO PRN ×3 (08:50→14:15)
[2019-09-11] MEDS ORDERED: CALCIUM CARBONATE 500 MG TAB.CHEW PO PRN (09:00)
[2019-09-11] MEDS ORDERED: POTASSIUM CHLORIDE 20 MEQ TAB.ER.PRT PO ONE (09:00)
[2019-09-11 12:20] VITALS: BP 136/99
[2019-09-11] MEDS: AMIODARONE 900 MG in DEXTROSE 5% 482 ML IV PRN (12:56)
[2019-09-11] MEDS ORDERED: AMIODARONE 150 MG in DEXTROSE 5% 100 ML IV ONE (13:00)
[2019-09-11] MEDS: FILTER 0.22 MICRON FOR AMIODARONE IV PRN (13:00)
[2019-09-11] MEDS: CHOLECALCIFEROL 400 UNITS TABLET PO SCH (16:39)
[2019-09-11] MEDS: RIVAROXABAN 20 MG TABLET PO SCH (16:40)
[2019-09-11] MEDS: METOPROLOL TARTRATE 100 MG TABLET PO SCH (19:36)
[2019-09-11 21:08] VITALS: BP 122/86
[2019-09-12 00:53] VITALS: BP 128/91
[2019-09-12] MEDS: PIPERACILLIN/TAZO/PMX 3.375GM 50 ML IV SCH (02:58)
[2019-09-12 05:11] LABS: CHLORIDE 109 mmol/L (98-107)
[2019-09-12 05:15] LABS: ANION GAP 6 mmol/L (5-15); CALCIUM 8.2 mg/dL (8.5-10.1); CREATININE 0.58 mg/dL (0.7-1.3)
[2019-09-12] MEDS: PANTOPRAZOLE 20MG TABLET PO SCH ×2 (06:02→15:54)
[2019-09-12 08:05] VITALS: BP 146/87
[2019-09-12] MEDS ORDERED: AMIODARONE 50 MG/ML, 3ML IVPush ONE ×2 (09:00→11:00)
[2019-09-12] MEDS ORDERED: AMIODARONE 150 MG in DEXTROSE 5% 100 ML IV ONE ×4 (09:00→17:30)
[2019-09-12] MEDS: METOPROLOL TARTRATE 100 MG TABLET PO SCH ×2 (09:12→20:10)
[2019-09-12] MEDS: ASCORBIC ACID 500 MG TABLET PO SCH ×2 (09:12→15:50)
[2019-09-12] MEDS: LACTOBACILLUS CHEW TABLET PO SCH ×3 (09:12→20:10)
[2019-09-12] MEDS: MULTIVITS,STRESS FORMULA 1 TABLET PO SCH (09:13)
[2019-09-12] MEDS: FILTER 0.22 MICRON FOR AMIODARONE IV PRN (09:21)
[2019-09-12] MEDS: AMOXICILLIN/CLAV 875-125MG TABLET PO SCH ×2 (09:21→20:10)
[2019-09-12] MEDS: LOPERAMIDE 2 MG CAPSULE PO PRN (10:10)
[2019-09-12] MEDS: OXYcodone IR 5MG TABLET PO PRN ×2 (10:11→14:26)
[2019-09-12] MEDS: AMIODARONE 900 MG in DEXTROSE 5% 482 ML IV PRN (10:19)
[2019-09-12 10:59] VITALS: BP 155/107
[2019-09-12 12:18] VITALS: BP 149/101
[2019-09-12 12:46] VITALS: BP 151/113
[2019-09-12] MEDS ORDERED: AMIODARONE IN D5W 100 ML IV ONE ×2 (13:30→17:00)
[2019-09-12] MEDS: ACETAMINOPHEN 325 MG TABLET PO PRN (14:26)
[2019-09-12] MEDS: RIVAROXABAN 20 MG TABLET PO SCH (15:51)
[2019-09-12] MEDS: CHOLECALCIFEROL 400 UNITS TABLET PO SCH (15:51)
[2019-09-13] MEDS ORDERED: OMNIPAQUE 350 MG/ML, 100ML BOTTLE ONE (02:34)
[2019-09-13 03:58] VITALS: BP 144/92
[2019-09-13 03:59] VITALS: BP 140/92
[2019-09-13 05:03] LABS: ANION GAP 3 mmol/L (5-15); CALCIUM 8.3 mg/dL (8.5-10.1); CHLORIDE 106 mmol/L (98-107); CREATININE 0.54 mg/dL (0.7-1.3)
[2019-09-13] MEDS: PANTOPRAZOLE 20MG TABLET PO SCH ×2 (06:30→15:45)
[2019-09-13] MEDS: AMIODARONE 900 MG in DEXTROSE 5% 482 ML IV PRN ×2 (07:46→23:28)
[2019-09-13] MEDS: FILTER 0.22 MICRON FOR AMIODARONE IV PRN ×3 (07:46→23:39)
[2019-09-13] MEDS: AMOXICILLIN/CLAV 875-125MG TABLET PO SCH ×2 (08:13→20:16)
[2019-09-13] MEDS: ASCORBIC ACID 500 MG TABLET PO SCH ×2 (08:13→15:45)
[2019-09-13] MEDS: MULTIVITS,STRESS FORMULA 1 TABLET PO SCH (08:14)
[2019-09-13] MEDS: LACTOBACILLUS CHEW TABLET PO SCH ×3 (08:14→20:16)
[2019-09-13 08:16] VITALS: BP 144/102
[2019-09-13] MEDS: METOPROLOL TARTRATE 100 MG TABLET PO SCH ×2 (08:21→20:17)
[2019-09-13] MEDS: ACETAMINOPHEN 325 MG TABLET PO PRN ×2 (08:39→15:48)
[2019-09-13] MEDS: LOPERAMIDE 2 MG CAPSULE PO PRN (08:39)
[2019-09-13] MEDS: OXYcodone IR 5MG TABLET PO PRN ×3 (08:40→20:28)
[2019-09-13] MEDS ORDERED: AMIODARONE 50 MG/ML, 3ML IVPush ONE (09:00)
[2019-09-13] MEDS ORDERED: AMIODARONE 300 MG in DEXTROSE 5% 100 ML IV ONE (09:30)
[2019-09-13] MEDS ORDERED: LIDOCAINE 1%, 10ML ONE (11:41)
[2019-09-13 14:34] VITALS: BP 123/87
[2019-09-13] MEDS: CHOLECALCIFEROL 400 UNITS TABLET PO SCH (15:48)
[2019-09-13] MEDS: RIVAROXABAN 20 MG TABLET PO SCH (15:49)
[2019-09-13 19:20] VITALS: BP 119/83
[2019-09-14 01:40] VITALS: BP 128/93
[2019-09-14 05:10] LABS: ANION GAP 6 mmol/L (5-15); CALCIUM 8.1 mg/dL (8.5-10.1); CHLORIDE 105 mmol/L (98-107)
[2019-09-14] MEDS: PANTOPRAZOLE 20MG TABLET PO SCH ×2 (05:51→16:25)
[2019-09-14] MEDS ORDERED: POTASSIUM CHLORIDE 20 MEQ TAB.ER.PRT PO SCH (07:30)
[2019-09-14 08:07] VITALS: BP 130/90
[2019-09-14] MEDS ORDERED: DIGOXIN 0.25 MG/ML, 2ML IVPush ONE ×2 (08:30→13:00)
[2019-09-14] MEDS: MULTIVITS,STRESS FORMULA 1 TABLET PO SCH (08:59)
[2019-09-14] MEDS: METOPROLOL TARTRATE 100 MG TABLET PO SCH ×2 (08:59→20:44)
[2019-09-14] MEDS: AMOXICILLIN/CLAV 875-125MG TABLET PO SCH (09:00)
[2019-09-14] MEDS: LACTOBACILLUS CHEW TABLET PO SCH ×3 (09:00→20:44)
[2019-09-14] MEDS: AMIODARONE 200 MG TABLET PO SCH ×2 (09:01→20:44)
[2019-09-14] MEDS: ASCORBIC ACID 500 MG TABLET PO SCH ×2 (09:02→16:25)
[2019-09-14] MEDS: ACETAMINOPHEN 325 MG TABLET PO PRN ×2 (09:47→16:25)
[2019-09-14] MEDS: OXYcodone IR 5MG TABLET PO PRN ×3 (09:49→21:02)
[2019-09-14] MEDS: CYCLOBENZAPRINE 10 MG TABLET PO PRN (11:13)
[2019-09-14] MEDS ORDERED: MAGNESIUM SULFATE PMX 2GM/50ML 50 ML IV ONE (12:00)
[2019-09-14] MEDS ORDERED: AMIODARONE 900 MG in DEXTROSE 5% 482 ML IV PRN (13:00)
[2019-09-14 13:36] VITALS: BP 134/84
[2019-09-14] MEDS: CHOLECALCIFEROL 400 UNITS TABLET PO SCH (16:25)
[2019-09-14] MEDS: RIVAROXABAN 20 MG TABLET PO SCH (16:25)
[2019-09-14] MEDS ORDERED: IBUPROFEN 200 MG TABLET PO PRN (17:00)
[2019-09-14 19:11] VITALS: BP 140/89
[2019-09-14 20:41] VITALS: BP 124/74
[2019-09-15 02:48] VITALS: BP 104/68
[2019-09-15 05:39] LABS: ANION GAP 6 mmol/L (5-15); CALCIUM 8.7 mg/dL (8.5-10.1); CHLORIDE 104 mmol/L (98-107)
[2019-09-15 05:40] LABS: CREATININE 0.57 mg/dL (0.7-1.3)
[2019-09-15] MEDS: PANTOPRAZOLE 20MG TABLET PO SCH ×2 (05:47→16:19)
[2019-09-15 05:59] LABS: MEAN CORPUSCULAR HEMOGLOBIN 30.4 pg (27.5-34.5); MEAN CORPUSCULAR HGB CONC 32.2 g/dL (33.2-36.2); MEAN CORPUSCULAR VOLUME 94.3 fL (81-97); MEAN PLATELET VOLUME 9.6 fL (7.4-10.4); PLATELET COUNT 435 x10^3/uL (130-400); RED BLOOD COUNT 4.32 x10^6/uL (4.38-5.82); RED CELL DISTRIBUTION WIDTH 14.4 % (9.4-14.8)
[2019-09-15 06:51] LABS: BASOPHILS # (AUTO) 0.13 x10^3/uL (0-0.1); BASOPHILS % (AUTO) 1 % (0-1); EOSINOPHILS % (AUTO) 5 % (1-7); LYMPHOCYTES # (AUTO) 1.48 x10^3/uL (1-3.4); LYMPHOCYTES % (AUTO) 12 % (22-44); MD SCAN; MONOCYTES # (AUTO) 1.14 x10^3/uL (0.2-0.8); MONOCYTES % (AUTO) 9 % (2-9); NEUTROPHILS # (AUTO) 8.86 x10^3/uL (1.8-6.8); NEUTROPHILS % (AUTO) 73 % (42-75)
[2019-09-15 08:00] VITALS: BP 149/83
[2019-09-15] MEDS ORDERED: DIGOXIN 0.25 MG/ML, 2ML IVPush SCH (09:00)
[2019-09-15] MEDS: LACTOBACILLUS CHEW TABLET PO SCH ×3 (09:05→20:36)
[2019-09-15] MEDS: ASCORBIC ACID 500 MG TABLET PO SCH ×2 (09:05→16:02)
[2019-09-15] MEDS: AMIODARONE 200 MG TABLET PO SCH ×2 (09:05→20:35)
[2019-09-15] MEDS: METOPROLOL TARTRATE 100 MG TABLET PO SCH ×2 (09:05→20:36)
[2019-09-15] MEDS ORDERED: DIGOXIN 0.25 MG/ML, 2ML IVPush ONE (10:00)
[2019-09-15] MEDS: MULTIVITS,STRESS FORMULA 1 TABLET PO SCH (11:40)
[2019-09-15 14:05] VITALS: BP 138/85
[2019-09-15] MEDS: RIVAROXABAN 20 MG TABLET PO SCH (16:02)
[2019-09-15 20:31] VITALS: BP 125/85
[2019-09-15] MEDS: CHOLECALCIFEROL 400 UNITS TABLET PO SCH (22:46)
[2019-09-15] MEDS: OXYcodone IR 5MG TABLET PO PRN (22:49)
[2019-09-16 03:02] VITALS: BP 128/78
[2019-09-16 05:06] LABS: CHLORIDE 107 mmol/L (98-107)
[2019-09-16 05:08] LABS: BASOPHILS # (AUTO) 0.02 x10^3/uL (0-0.1); BASOPHILS % (AUTO) 0 % (0-1); EOSINOPHILS # (AUTO) 0.48 x10^3/uL (0-0.4); EOSINOPHILS % (AUTO) 5 % (1-7); LYMPHOCYTES # (AUTO) 0.95 x10^3/uL (1-3.4); LYMPHOCYTES % (AUTO) 11 % (22-44); MD NO; MEAN CORPUSCULAR HGB CONC 32.5 g/dL (33.2-36.2); MEAN CORPUSCULAR VOLUME 92.4 fL (81-97); MONOCYTES # (AUTO) 0.97 x10^3/uL (0.2-0.8); MONOCYTES % (AUTO) 11 % (2-9); NEUTROPHILS # (AUTO) 6.61 x10^3/uL (1.8-6.8); NEUTROPHILS % (AUTO) 73 % (42-75); PLATELET COUNT 403 x10^3/uL (130-400); RED CELL DISTRIBUTION WIDTH 13.9 % (9.4-14.8)
[2019-09-16 05:18] LABS: ALANINE AMINOTRANSFERASE 66 U/L (12-78); ALBUMIN 1.9 g/dL (3.4-5.0); ALKALINE PHOSPHATASE 84 U/L (45-117); ANION GAP 5 mmol/L (5-15); BILIRUBIN,TOTAL 0.5 mg/dL (0.2-1.0); CALCIUM 8.2 mg/dL (8.5-10.1); CREATININE 0.49 mg/dL (0.7-1.3); TOTAL PROTEIN 5.8 g/dL (6.4-8.2)
[2019-09-16] MEDS: PANTOPRAZOLE 20MG TABLET PO SCH ×2 (05:44→16:44)
[2019-09-16 06:32] VITALS: BP 142/88
[2019-09-16 06:32] LABS: HCT (SEDRATE) 34.2 % (39.2-51.8)
[2019-09-16] MEDS: LACTOBACILLUS CHEW TABLET PO SCH ×3 (09:18→20:47)
[2019-09-16] MEDS: ASCORBIC ACID 500 MG TABLET PO SCH ×2 (09:18→16:43)
[2019-09-16] MEDS: MULTIVITS,STRESS FORMULA 1 TABLET PO SCH (09:18)
[2019-09-16] MEDS: AMIODARONE 200 MG TABLET PO SCH ×2 (09:19→20:48)
[2019-09-16] MEDS: DIGOXIN 0.25 MG TABLET PO SCH (09:20)
[2019-09-16] MEDS: METOPROLOL TARTRATE 100 MG TABLET PO SCH ×2 (09:20→20:47)
[2019-09-16 13:30] VITALS: BP 116/78
[2019-09-16] MEDS: OXYcodone IR 5MG TABLET PO PRN (14:19)
[2019-09-16] MEDS: CHOLECALCIFEROL 400 UNITS TABLET PO SCH (16:43)
[2019-09-16] MEDS: RIVAROXABAN 20 MG TABLET PO SCH (16:44)
[2019-09-16 19:35] VITALS: BP 120/79
[2019-09-17 00:25] VITALS: BP 123/87
[2019-09-17 06:04] LABS: BASOPHILS # (AUTO) 0.01 x10^3/uL (0-0.1); BASOPHILS % (AUTO) 0 % (0-1); EOSINOPHILS # (AUTO) 0.44 x10^3/uL (0-0.4); EOSINOPHILS % (AUTO) 6 % (1-7); LYMPHOCYTES # (AUTO) 0.81 x10^3/uL (1-3.4); LYMPHOCYTES % (AUTO) 11 % (22-44); MD NO; MEAN CORPUSCULAR HEMOGLOBIN 30.3 pg (27.5-34.5); MEAN CORPUSCULAR HGB CONC 32.6 g/dL (33.2-36.2); MEAN CORPUSCULAR VOLUME 92.9 fL (81-97); MEAN PLATELET VOLUME 8.9 fL (7.4-10.4); MONOCYTES % (AUTO) 12 % (2-9); NEUTROPHILS # (AUTO) 5.51 x10^3/uL (1.8-6.8); NEUTROPHILS % (AUTO) 72 % (42-75); PLATELET COUNT 442 x10^3/uL (130-400); RED BLOOD COUNT 3.79 x10^6/uL (4.38-5.82); RED CELL DISTRIBUTION WIDTH 14.1 % (9.4-14.8)
[2019-09-17 06:17] LABS: ANION GAP 5 mmol/L (5-15); CALCIUM 8.3 mg/dL (8.5-10.1); CHLORIDE 108 mmol/L (98-107); CREATININE 0.46 mg/dL (0.7-1.3)
[2019-09-17] MEDS: PANTOPRAZOLE 20MG TABLET PO SCH ×2 (06:20→18:15)
[2019-09-17 09:06] VITALS: BP 128/88
[2019-09-17] MEDS: LACTOBACILLUS CHEW TABLET PO SCH ×3 (09:07→22:49)
[2019-09-17] MEDS: ASCORBIC ACID 500 MG TABLET PO SCH ×2 (09:07→18:15)
[2019-09-17] MEDS: MULTIVITS,STRESS FORMULA 1 TABLET PO SCH (09:07)
[2019-09-17] MEDS: METOPROLOL TARTRATE 100 MG TABLET PO SCH ×2 (09:08→22:49)
[2019-09-17] MEDS: AMIODARONE 200 MG TABLET PO SCH ×2 (09:08→22:49)
[2019-09-17] MEDS: DIGOXIN 0.25 MG TABLET PO SCH (09:08)
[2019-09-17 13:25] VITALS: BP 136/92
[2019-09-17] MEDS: OXYcodone IR 5MG TABLET PO PRN ×2 (14:43→22:56)
[2019-09-17] MEDS: CHOLECALCIFEROL 400 UNITS TABLET PO SCH (18:15)
[2019-09-17] MEDS: RIVAROXABAN 20 MG TABLET PO SCH (18:16)
[2019-09-17 20:13] VITALS: BP 141/88
[2019-09-18 00:25] VITALS: BP 144/84
[2019-09-18] MEDS: PANTOPRAZOLE 20MG TABLET PO SCH ×2 (06:07→15:49)
[2019-09-18 06:28] LABS: BASOPHILS # (AUTO) 0.03 x10^3/uL (0-0.1); BASOPHILS % (AUTO) 0 % (0-1); EOSINOPHILS # (AUTO) 0.49 x10^3/uL (0-0.4); EOSINOPHILS % (AUTO) 7 % (1-7); LYMPHOCYTES # (AUTO) 1.03 x10^3/uL (1-3.4); LYMPHOCYTES % (AUTO) 14 % (22-44); MD NO; MEAN CORPUSCULAR HEMOGLOBIN 29.8 pg (27.5-34.5); MEAN CORPUSCULAR VOLUME 93.1 fL (81-97); MEAN PLATELET VOLUME 9.3 fL (7.4-10.4); MONOCYTES # (AUTO) 0.93 x10^3/uL (0.2-0.8); MONOCYTES % (AUTO) 13 % (2-9); NEUTROPHILS # (AUTO) 4.99 x10^3/uL (1.8-6.8); NEUTROPHILS % (AUTO) 67 % (42-75); PLATELET COUNT 477 x10^3/uL (130-400); RED BLOOD COUNT 3.84 x10^6/uL (4.38-5.82); RED CELL DISTRIBUTION WIDTH 14.2 % (9.4-14.8)
[2019-09-18 06:40] LABS: CALCIUM 8.4 mg/dL (8.5-10.1); CHLORIDE 107 mmol/L (98-107)
[2019-09-18 06:44] LABS: ANION GAP 5 mmol/L (5-15); CREATININE 0.53 mg/dL (0.7-1.3)
[2019-09-18 07:00] VITALS: BP 146/98
[2019-09-18] MEDS: AMIODARONE 200 MG TABLET PO SCH ×2 (09:00→10:45)
[2019-09-18] MEDS: METOPROLOL TARTRATE 100 MG TABLET PO SCH ×2 (10:46→20:36)
[2019-09-18] MEDS: MULTIVITS,STRESS FORMULA 1 TABLET PO SCH (10:46)
[2019-09-18] MEDS: DIGOXIN 0.25 MG TABLET PO SCH (10:46)
[2019-09-18] MEDS: LACTOBACILLUS CHEW TABLET PO SCH ×3 (10:46→20:36)
[2019-09-18] MEDS: ASCORBIC ACID 500 MG TABLET PO SCH ×2 (10:46→15:49)
[2019-09-18 12:44] VITALS: BP 145/89
[2019-09-18] MEDS: CYCLOBENZAPRINE 10 MG TABLET PO PRN (15:49)
[2019-09-18] MEDS: RIVAROXABAN 20 MG TABLET PO SCH (17:00)
[2019-09-18] MEDS: CHOLECALCIFEROL 400 UNITS TABLET PO SCH (18:11)
[2019-09-18] MEDS: OXYcodone IR 5MG TABLET PO PRN (18:30)
[2019-09-18 18:42] VITALS: BP 125/79
[2019-09-18 20:34] VITALS: BP 133/76
[2019-09-18] MEDS: ACETAMINOPHEN 325 MG TABLET PO PRN (20:46)
[2019-09-19 02:01] VITALS: BP 127/74
[2019-09-19 05:22] LABS: CREATININE 0.74 mg/dL (0.7-1.3)
[2019-09-19] MEDS: PANTOPRAZOLE 20MG TABLET PO SCH ×2 (06:03→16:00)
[2019-09-19] MEDS: ASCORBIC ACID 500 MG TABLET PO SCH ×2 (07:53→16:00)
[2019-09-19] MEDS: LACTOBACILLUS CHEW TABLET PO SCH ×3 (07:53→20:29)
[2019-09-19] MEDS: MULTIVITS,STRESS FORMULA 1 TABLET PO SCH (07:54)
[2019-09-19] MEDS: DIGOXIN 0.25 MG TABLET PO SCH (07:54)
[2019-09-19] MEDS: AMIODARONE 200 MG TABLET PO SCH (07:54)
[2019-09-19] MEDS: METOPROLOL TARTRATE 100 MG TABLET PO SCH ×2 (07:54→20:29)
[2019-09-19 08:16] VITALS: BP 135/83
[2019-09-19] MEDS ORDERED: AMIO200T42 PO (12:36)
[2019-09-19] MEDS ORDERED: CYCL-259 PO (12:36)
[2019-09-19] MEDS ORDERED: DIGO250T PO (12:36)
[2019-09-19 12:57] VITALS: BP 117/77
[2019-09-19] MEDS: RIVAROXABAN 20 MG TABLET PO SCH (16:00)
[2019-09-19] MEDS: CHOLECALCIFEROL 400 UNITS TABLET PO SCH (16:02)
[2019-09-19] MEDS: CYCLOBENZAPRINE 10 MG TABLET PO PRN (16:09)
[2019-09-19] MEDS: OXYcodone IR 5MG TABLET PO PRN (16:09)
[2019-09-19 20:27] VITALS: BP 137/82
[2019-09-20 02:00] VITALS: BP 128/85
[2019-09-20 06:05] LABS: BASOPHILS # (AUTO) 0.04 x10^3/uL (0-0.1); BASOPHILS % (AUTO) 0 % (0-1); EOSINOPHILS # (AUTO) 0.44 x10^3/uL (0-0.4); EOSINOPHILS % (AUTO) 5 % (1-7); LYMPHOCYTES # (AUTO) 1.31 x10^3/uL (1-3.4); LYMPHOCYTES % (AUTO) 14 % (22-44); MD NO; MEAN CORPUSCULAR HGB CONC 32.4 g/dL (33.2-36.2); MEAN CORPUSCULAR VOLUME 92.7 fL (81-97); MONOCYTES # (AUTO) 0.95 x10^3/uL (0.2-0.8); MONOCYTES % (AUTO) 10 % (2-9); NEUTROPHILS # (AUTO) 6.58 x10^3/uL (1.8-6.8); NEUTROPHILS % (AUTO) 71 % (42-75); PLATELET COUNT 550 x10^3/uL (130-400); RED BLOOD COUNT 4.23 x10^6/uL (4.38-5.82); RED CELL DISTRIBUTION WIDTH 14.1 % (9.4-14.8)
[2019-09-20 06:15] LABS: ANION GAP 7 mmol/L (5-15); CALCIUM 8.6 mg/dL (8.5-10.1); CHLORIDE 109 mmol/L (98-107)
[2019-09-20] MEDS: PANTOPRAZOLE 20MG TABLET PO SCH ×2 (06:15→16:30)
[2019-09-20 06:16] LABS: CREATININE 0.63 mg/dL (0.7-1.3)
[2019-09-20 07:29] VITALS: BP 119/83
[2019-09-20] MEDS: LACTOBACILLUS CHEW TABLET PO SCH ×2 (08:47→16:30)
[2019-09-20] MEDS: MULTIVITS,STRESS FORMULA 1 TABLET PO SCH (08:47)
[2019-09-20] MEDS: AMIODARONE 200 MG TABLET PO SCH (08:48)
[2019-09-20] MEDS: METOPROLOL TARTRATE 100 MG TABLET PO SCH (08:48)
[2019-09-20] MEDS: DIGOXIN 0.25 MG TABLET PO SCH (08:48)
[2019-09-20] MEDS: ASCORBIC ACID 500 MG TABLET PO SCH ×2 (08:48→16:30)
[2019-09-20 13:04] VITALS: BP 111/62
[2019-09-20] MEDS ORDERED: METO-99 PO (13:41)
[2019-09-20] MEDS ORDERED: CHOL400T2 PO (13:41)
[2019-09-20] MEDS: OXYcodone IR 5MG TABLET PO PRN (14:34)
[2019-09-20] MEDS: RIVAROXABAN 20 MG TABLET PO SCH (16:30)
[2019-09-20] MEDS: CHOLECALCIFEROL 400 UNITS TABLET PO SCH (16:30)
== END 2019-09-20 16:43 | DRG 871 ==
LOC: ED 20:40 → EDIP 20:57 → 5SO 22:26
PROVIDERS: ADMIT Internal Medicine; ATTEND Internal Medicine
PROC: 0W993ZZ Drainage of Right Pleural Cavity, Percutaneous Approach (ICD-10-PCS; principal; 2019-09-13)
DX: A41.9 Sepsis, unspecified organism (principal); J15.9 Unspecified bacterial pneumonia; J96.01 Acute respiratory failure with hypoxia; I48.20 Chronic atrial fibrillation, unspecified; D68.69 Other thrombophilia; J91.8 Pleural effusion in other conditions classified elsewhere; D64.9 Anemia, unspecified; E87.6 Hypokalemia; E88.09 Other disorders of plasma-protein metabolism, not elsewhere classified; I10 Essential (primary) hypertension; I48.0 Paroxysmal atrial fibrillation; I80.8 Phlebitis and thrombophlebitis of other sites; K21.9 Gastro-esophageal reflux disease without esophagitis; K52.9 Noninfective gastroenteritis and colitis, unspecified; Z17.1 Estrogen receptor negative status [ER-]; Z79.01 Long term (current) use of anticoagulants; Z82.49 Family history of ischemic heart disease and other diseases of the circulatory system; Z86.72 Personal history of thrombophlebitis; Z87.891 Personal history of nicotine dependence; Z96.649 Presence of unspecified artificial hip joint
CPT/HCPCS: 32555; 36415; 70450; 71045; 71250; 71275; 80048; 80053; 80061; 80069; 80162; 80202; 81001; 82042; 82150; 82565; 82945; 83036; 83605; 83615; 83735; 83880; 83986; 84100; 84145; 84157; 84439; 84443; 85025; 85610; 85651; 85730; 86140; 87015; 87040; 87070; 87075; 87081; 87102; 87116; 87205; 87206; 87324; 87400; 88112; 88305; 88341; 88342; 89051; 93005; 93970; 96365; 96374; 99285; G0378; J0610; J2543; J3370; J3480; Q9967; J0282; J1160; J3475; J7030; J7040; J7050; J7060

== ENCOUNTER 2019-11-21 17:05 | Emergency (ER) | payer MEDICARE ==
[~2019-11-21] VITALS: Ht 177.8 cm; Wt 84.0 kg
[~2019-11-21 17:05] MED LIST changes: +AMIO200T42 PO; +CHOL400T2 PO; +CYCL-259 PO; +DIGO250T PO
[2019-11-21 17:08] VITALS: BP 153/93
[2019-11-21] MEDS ORDERED: APIX5TAB PO (17:32)
--- NOTE | 2019-11-21 18:05 | NUR ---
PT REPORTS HE HAD A GLF TWO DAYS AGO AND HIS DOCTOR WANTED HIM TO COME INTO THE ER TO GET CHECKED OUT. PT DENIES ANY MEDICAL COMPLAINTS. FAMILY AT BEDSIDE. NO ACUTE DISTRESS NOTED. CALL LIGHT IN PLACE. WILL CONTINUE TO MONITOR.
== END 2019-11-21 18:37 | disposition home or self-care (01) ==
LOC: ED 18:31
DX: I10 Essential (primary) hypertension (principal); I48.91 Unspecified atrial fibrillation; W01.0XXA Fall on same level from slipping, tripping and stumbling without subsequent striking against object, initial encounter; Y93.89 Activity, other specified; Y92.098 Other place in other non-institutional residence as the place of occurrence of the external cause; Y99.8 Other external cause status
CPT/HCPCS: 99283

== ENCOUNTER 2019-12-12 19:02 | Observation (INO) | payer MEDICARE ==
[~2019-12-12] VITALS: Ht 180.3 cm; Wt 82.8 kg
[~2019-12-12 19:02] MED LIST changes: +APIX5TAB PO; -DIGO250T PO; +DIGO250T3 PO
[2019-12-12] MEDS ORDERED: SODIUM CHLORIDE 0.9% 1,000ML IVBOLUS ONE (19:30)
[2019-12-12] MEDS ORDERED: SODIUM CHLORIDE FLUSH 10ML SYR IVF ONE (19:30)
[2019-12-12] MEDS ORDERED: SODIUM CHLORIDE 0.9%, 500ML IVBOLUS ONE (19:30)
--- NOTE | 2019-12-12 19:30 | NUR ---
Pt brought by ambulance c/o weakness and unable to walk today. Medicated per MAR, family at bedside.
[2019-12-12 19:48] LABS: BASOPHILS # (AUTO) 0.03 x10^3/uL (0-0.1); BASOPHILS % (AUTO) 0 % (0-1); EOSINOPHILS # (AUTO) 0.13 x10^3/uL (0-0.4); EOSINOPHILS % (AUTO) 1 % (1-7); LYMPHOCYTES # (AUTO) 0.93 x10^3/uL (1-3.4); LYMPHOCYTES % (AUTO) 9 % (22-44); MD NO; MEAN CORPUSCULAR HEMOGLOBIN 29.4 pg (27.5-34.5); MEAN CORPUSCULAR HGB CONC 33.1 g/dL (33.2-36.2); MEAN CORPUSCULAR VOLUME 88.9 fL (81-97); MEAN PLATELET VOLUME 10.1 fL (7.4-10.4); MONOCYTES # (AUTO) 1.12 x10^3/uL (0.2-0.8); MONOCYTES % (AUTO) 11 % (2-9); NEUTROPHILS # (AUTO) 7.77 x10^3/uL (1.8-6.8); NEUTROPHILS % (AUTO) 78 % (42-75); PLATELET COUNT 238 x10^3/uL (130-400); RED CELL DISTRIBUTION WIDTH 15.6 % (9.4-14.8)
[2019-12-12 19:54] LABS: ALANINE AMINOTRANSFERASE 13 U/L (12-78); ANION GAP 7 mmol/L (5-15); CHLORIDE 107 mmol/L (98-107); CREATININE 0.79 mg/dL (0.7-1.3); T4 (THYROXINE) 11.6 mcg/dL (4.5-12.1)
[2019-12-12 19:59] LABS: ALKALINE PHOSPHATASE 92 U/L (45-117); BILIRUBIN,TOTAL 0.9 mg/dL (0.2-1.0); TOTAL PROTEIN 6.8 g/dL (6.4-8.2); TROPONIN I < 0.015 ng/mL (0.000-0.045)
[2019-12-12] MEDS ORDERED: MAGNESIUM SULFATE PMX 2GM/50ML 50 ML IV ONE (20:00)
[2019-12-12] MEDS ORDERED: POTASSIUM CHLORIDE 20 MEQ PACKET PO ONE (20:00)
[2019-12-12] MEDS ORDERED: POTASSIUM CHLORIDE 20 MEQ PACKET ONE (20:07)
[2019-12-12] MEDS ORDERED: MAGNESIUM SULFATE PMX 2GM/50ML 50 ML ONE (20:07)
--- NOTE | 2019-12-12 21:07 | NUR ---
Admitting provider at bedside, med list discussed with pt's .
[2019-12-12] MEDS ORDERED: ESOM40CA PO (21:09)
[2019-12-12] MEDS ORDERED: ONDANSETRON 2MG/ML, 2ML IVPush PRN (21:30)
[2019-12-12] MEDS ORDERED: CYCLOBENZAPRINE 10 MG TABLET PO PRN (21:30)
[2019-12-12] MEDS ORDERED: DILTIAZEM 5 MG/ML, 5ML IVPush PRN (21:30)
[2019-12-12] MEDS ORDERED: ACETAMINOPHEN 325 MG TABLET PO PRN (21:30)
--- NOTE | 2019-12-12 22:08 | NUR ---
Pt sleeping, no acute distress noted, call light within reach.
[2019-12-12] MEDS ORDERED: APIXABAN 5 MG TABLET ONE (22:24)
[2019-12-12] MEDS ORDERED: METOPROLOL TARTRATE 50 MG TAB ONE (22:25)
[2019-12-12] MEDS: APIXABAN 5 MG TABLET PO SCH (22:28)
[2019-12-12] MEDS: METOPROLOL TARTRATE 100 MG TAB PO SCH (22:28)
--- NOTE | 2019-12-12 22:31 | NUR ---
urine sample sent
[2019-12-12 22:39] LABS: MICROSCOPIC NOT IND
[2019-12-12 22:41] LABS: CULTURE INDICATED? NO
--- NOTE | 2019-12-12 22:50 | NUR ---
Report given to Juan Luis CHRISTIAN.
[2019-12-12 23:25] VITALS: BP 152/91
[2019-12-12] MEDS: HYDROcodone/APAP 5/325 TABLET PO PRN (23:50)
[2019-12-13 01:55] VITALS: BP 140/80
[2019-12-13 06:31] LABS: BASOPHILS # (AUTO) 0.03 x10^3/uL (0-0.1); BASOPHILS % (AUTO) 0 % (0-1); EOSINOPHILS # (AUTO) 0.13 x10^3/uL (0-0.4); EOSINOPHILS % (AUTO) 2 % (1-7); LYMPHOCYTES % (AUTO) 19 % (22-44); MD NO; MEAN CORPUSCULAR HEMOGLOBIN 29.5 pg (27.5-34.5); MEAN CORPUSCULAR HGB CONC 33.7 g/dL (33.2-36.2); MEAN CORPUSCULAR VOLUME 87.7 fL (81-97); MEAN PLATELET VOLUME 10.4 fL (7.4-10.4); MONOCYTES # (AUTO) 1.29 x10^3/uL (0.2-0.8); MONOCYTES % (AUTO) 17 % (2-9); NEUTROPHILS # (AUTO) 4.67 x10^3/uL (1.8-6.8); NEUTROPHILS % (AUTO) 62 % (42-75); PLATELET COUNT 204 x10^3/uL (130-400); RED BLOOD COUNT 4.59 x10^6/uL (4.38-5.82); RED CELL DISTRIBUTION WIDTH 15.4 % (9.4-14.8)
[2019-12-13 06:34] LABS: ANION GAP 5 mmol/L (5-15); CALCIUM 7.7 mg/dL (8.5-10.1); CHLORIDE 108 mmol/L (98-107); CREATININE 0.74 mg/dL (0.7-1.3)
[2019-12-13] MEDS ORDERED: POTASSIUM CHLORIDE 40 MEQ in SODIUM CHLORIDE 0.9% 500 ML IV ONE (07:00)
[2019-12-13] MEDS ORDERED: MAGNESIUM SULFATE PMX 2GM/50ML 50 ML IV ONE (07:00)
[2019-12-13] MEDS: PANTOPROZOLE 40MG TABLET PO SCH (08:01)
[2019-12-13 08:11] VITALS: BP 147/93
[2019-12-13] MEDS: APIXABAN 5 MG TABLET PO SCH ×2 (08:59→20:58)
[2019-12-13] MEDS: MAGNESIUM OXIDE 400 MG TABLET PO SCH ×2 (08:59→20:58)
[2019-12-13] MEDS: METOPROLOL TARTRATE 100 MG TAB PO SCH ×2 (08:59→20:58)
[2019-12-13] MEDS: POTASSIUM CHLORIDE 20 MEQ TAB.ER.PRT PO SCH ×2 (09:00→16:47)
[2019-12-13] MEDS ORDERED: GADOTERATE 10 MMOL/20 ML SYR ONE (13:07)
[2019-12-13 13:41] VITALS: BP 155/100
[2019-12-13] MEDS: HYDROcodone/APAP 5/325 TABLET PO PRN ×2 (14:14→17:42)
[2019-12-13 14:51] LABS: HCT (SEDRATE) 44.6 % (39.2-51.8)
[2019-12-13 14:52] LABS: CLOSTRIDIUM DIFFICILE ANTIGEN NEGATIVE; CLOSTRIDIUM DIFFICILE TOXIN NEGATIVE (Negative)
[2019-12-13 20:00] VITALS: BP 122/86
[2019-12-13 20:56] VITALS: BP 140/99
[2019-12-14 01:00] VITALS: BP 120/76
[2019-12-14 05:29] LABS: MEAN CORPUSCULAR HEMOGLOBIN 29.1 pg (27.5-34.5); MEAN CORPUSCULAR HGB CONC 32.8 g/dL (33.2-36.2); MEAN CORPUSCULAR VOLUME 88.8 fL (81-97); MEAN PLATELET VOLUME 10.1 fL (7.4-10.4); PLATELET COUNT 229 x10^3/uL (130-400); RED BLOOD COUNT 4.63 x10^6/uL (4.38-5.82); RED CELL DISTRIBUTION WIDTH 15.4 % (9.4-14.8)
[2019-12-14 05:36] LABS: ANION GAP 4 mmol/L (5-15); CALCIUM 8.1 mg/dL (8.5-10.1); CHLORIDE 110 mmol/L (98-107)
[2019-12-14 05:37] LABS: CREATININE 0.74 mg/dL (0.7-1.3)
[2019-12-14 05:59] LABS: BASOPHILS # (AUTO) 0.01 x10^3/uL (0-0.1); BASOPHILS % (AUTO) 0 % (0-1); EOSINOPHILS % (AUTO) 0 % (1-7); LYMPHOCYTES # (AUTO) 0.74 x10^3/uL (1-3.4); LYMPHOCYTES % (AUTO) 10 % (22-44); MD SCAN; MONOCYTES # (AUTO) 0.59 x10^3/uL (0.2-0.8); MONOCYTES % (AUTO) 8 % (2-9); NEUTROPHILS # (AUTO) 6.03 x10^3/uL (1.8-6.8); NEUTROPHILS % (AUTO) 82 % (42-75)
[2019-12-14 07:22] VITALS: BP 128/85
[2019-12-14] MEDS: METOPROLOL TARTRATE 100 MG TAB PO SCH (08:01)
[2019-12-14] MEDS: POTASSIUM CHLORIDE 20 MEQ TAB.ER.PRT PO SCH (08:01)
[2019-12-14] MEDS: APIXABAN 5 MG TABLET PO SCH (08:01)
[2019-12-14] MEDS: MAGNESIUM OXIDE 400 MG TABLET PO SCH (08:01)
[2019-12-14] MEDS: PANTOPROZOLE 40MG TABLET PO SCH (08:01)
[2019-12-14] MEDS ORDERED: PRED20TA PO (12:31)
== END 2019-12-14 15:08 | disposition home or self-care (01) ==
LOC: ED 20:27 → INTOOBSV 21:43 → EDIP 21:43 → 4EST 23:07
PROVIDERS: ADMIT Family Medicine; ATTEND Internal Medicine Infectious Disease
DX: E87.6 Hypokalemia (principal); I48.20 Chronic atrial fibrillation, unspecified; M35.3 Polymyalgia rheumatica; K52.9 Noninfective gastroenteritis and colitis, unspecified; K21.9 Gastro-esophageal reflux disease without esophagitis; I10 Essential (primary) hypertension; E83.42 Hypomagnesemia; R94.6 Abnormal results of thyroid function studies; Z79.01 Long term (current) use of anticoagulants; Z96.649 Presence of unspecified artificial hip joint; Z98.1 Arthrodesis status; Z87.39 Personal history of other diseases of the musculoskeletal system and connective tissue
CPT/HCPCS: 36415; 71045; 72158; 80048; 80053; 81003; 82550; 83605; 83735; 84100; 84436; 84439; 84443; 84484; 85025; 85651; 86140; 87324; 93005; 96365; 96366; 96367; 97163; 97166; 99285; A9575; G0378; J3475; J3480; J7040; J7512

== ENCOUNTER 2020-06-19 08:14 | Observation (INO) | payer MEDICARE ==
[~2020-06-19] VITALS: Ht 180.3 cm; Wt 97.5 kg
[~2020-06-19 08:14] MED LIST changes: +ESOM40CA PO
[2020-06-19 08:39] VITALS: BP 132/94
[2020-06-19] MEDS ORDERED: AMIO200T42 PO (08:50)
[2020-06-19] MEDS ORDERED: DIGO125T85 PO (08:50)
[2020-06-19] MEDS ORDERED: CALCIUM CITRATE PO (08:50)
[2020-06-19] MEDS ORDERED: OXYC-306 PO (08:50)
[2020-06-19] MEDS ORDERED: LACT1CAP35 PO (08:50)
[2020-06-19] MEDS ORDERED: MULT-826 PO (08:50)
[2020-06-19] MEDS ORDERED: ATOR10TA9 PO (08:50)
[2020-06-19] MEDS ORDERED: ALEN70TA6 PO (08:50)
[2020-06-19] MEDS ORDERED: PLEASE ENTER HEIGHT AND WEIGHT MC SCH (09:00)
[2020-06-19] MEDS ORDERED: MIDAZOLAM 1 MG/ML, 5ML ONE (09:42)
[2020-06-19] MEDS ORDERED: HEPARIN 1,000 UNITS/ML, 10ML ONE (09:42)
[2020-06-19] MEDS ORDERED: VERAPAMIL 2.5 MG/ML, 2ML ONE (09:42)
[2020-06-19] MEDS ORDERED: FENTANYL PF 100 MCG/2ML ONE ×2 (09:42→09:45)
[2020-06-19] MEDS ORDERED: LIDOCAINE-MPF 1%, 5ML ONE (09:42)
[2020-06-19] MEDS ORDERED: MIDAZOLAM 1 MG/ML, 2ML ONE ×2 (09:45→10:18)
[2020-06-19] MEDS ORDERED: CEFAZOLIN PMX 1GM/50ML 50 ML ONE (09:45)
[2020-06-19] MEDS ORDERED: LIDOCAINE 1%, 20ML ONE ×2 (09:45→10:18)
[2020-06-19] MEDS ORDERED: CEFAZOLIN 1,000 MG ONE (09:45)
[2020-06-19] MEDS ORDERED: CEFAZOLIN PMX 1GM/50ML 50 ML IVPB ONE (10:00)
[2020-06-19] MEDS ORDERED: SODIUM CHLORIDE 0.9% 1,000 ML IV SCH (10:00)
[2020-06-19] MEDS ORDERED: ACETAMINOPHEN 325 MG TABLET PO PRN (11:00)
[2020-06-19] MEDS ORDERED: Hold all anticoagulants for 24 hours MC PRN (11:00)
[2020-06-19] MEDS ORDERED: HYDROcodone/APAP 5/325 TABLET PO PRN (11:00)
[2020-06-19 15:28] VITALS: BP 112/84
[2020-06-19] MEDS: CEFAZOLIN PMX 1GM/50ML 50 ML IVPB SCH (17:42)
[2020-06-19] MEDS: SODIUM CHLORIDE FLUSH 10ML SYR IVF SCH (20:24)
[2020-06-19] MEDS: METOPROLOL TARTRATE 100 MG TAB PO SCH (20:24)
[2020-06-19 20:29] VITALS: BP 121/82
[2020-06-19] MEDS ORDERED: ATORVASTATIN 10 MG TABLET PO SCH (21:00)
[2020-06-20 01:46] VITALS: BP 144/97
[2020-06-20] MEDS: CEFAZOLIN PMX 1GM/50ML 50 ML IVPB SCH (02:10)
[2020-06-20] MEDS ORDERED: PANTOPRAZOLE 40MG TABLET PO SCH (06:00)
[2020-06-20 06:44] VITALS: BP 154/94
[2020-06-20] MEDS: SODIUM CHLORIDE FLUSH 10ML SYR IVF SCH (08:36)
[2020-06-20] MEDS: METOPROLOL TARTRATE 100 MG TAB PO SCH (08:36)
[2020-06-20] MEDS ORDERED: AMIODARONE 200 MG TABLET PO SCH (09:00)
[2020-06-20] MEDS ORDERED: MULTIVITAMIN 1 TABLET PO SCH (09:00)
[2020-06-20] MEDS ORDERED: DIGOXIN 0.125 MG TABLET PO SCH (09:00)
[2020-06-22] MEDS ORDERED: ALENDRONATE 70 MG TABLET PO SCH (06:30)
== END 2020-06-20 11:30 | disposition home or self-care (01) ==
LOC: CACL 08:14 → 5SO 11:01 → CACL 23:18 → 5SO 23:19 → DCLOUNGE 06-20 11:14
PROVIDERS: ADMIT Internal Medicine Cardiovascular Disease; ATTEND Internal Medicine Cardiovascular Disease
DX: I48.91 Unspecified atrial fibrillation (principal); I44.2 Atrioventricular block, complete; I10 Essential (primary) hypertension; E78.2 Mixed hyperlipidemia
CPT/HCPCS: 33207; 71045; 71046; 93005; 96365; 96366; 99156; 99157; C1779; C1786; C1892; G0378; J0690; J2250; J3010; J3490; J7512; J1644

== ENCOUNTER → 2021-04-29 | Outpatient (CLI) | payer MEDICARE ==
[~2021-04-29] MED LIST changes: +ALEN70TA77 PO; +ASPI-1026 PO; -ASPI-650 PO; +ASPI325T20 PO; +ATOR10TA9 PO; +CALCIUM CITRATE PO; -CYCL-259 PO; +CYCL10TA2 PO; +DIGO125T85 PO; +LACT1CAP35 PO; +MULT-826 PO; +OXYC1TAB17 PO
== END | disposition home or self-care (01) ==
LOC: CVU 15:34
PROVIDERS: ATTEND Physician Assistant Medical
DX: I08.0 Rheumatic disorders of both mitral and aortic valves (principal); I71.2 Thoracic aortic aneurysm, without rupture; I48.91 Unspecified atrial fibrillation; I10 Essential (primary) hypertension
CPT/HCPCS: 93308; 93321; 93325